=== PATIENT | male | born 1985 | race Caucasian/White ===

== ENCOUNTER 2017-03-24 10:39 | Inpatient (IN) | payer BC ==
[2017-03-24] VITALS (20 sets, daily range): BP systolic 77–156; BP diastolic 25–93
[~2017-03-24] VITALS: Ht 182.9 cm; Wt 72.1 kg
[2017-03-24] MEDS ORDERED: ONDANSETRON HCL/PF 4 MG/2 ML VIAL ONE ×2 (10:46→12:59)
[2017-03-24] MEDS ORDERED: LORAZEPAM INJ 2 MG/ML VIAL ONE (10:46)
[2017-03-24 10:59] LABS: BASOPHILS # (AUTO) 0.1 /CMM (0.0-0.2); BASOPHILS % (AUTO) 0.9 % (0.0-2.0); HEMATOCRIT 39 % (39-51); HEMOGLOBIN 13.1 g/dL (13.5-17.5); LYMPHOCYTES # (AUTO) 0.7 /CMM (0.8-4.8); LYMPHOCYTES % (AUTO) 9.8 % (20.0-44.0); MEAN CORPUSCULAR HEMOGLOBIN 33 PG (26.0-33.0); MEAN CORPUSCULAR HGB CONC 34 g/dl (31.0-36.0); MEAN CORPUSCULAR VOLUME 98 fL (80-96); MONOCYTES # (AUTO) 0.4 /CMM (0.1-1.30); NEUTROPHILS # (AUTO) 6.2 /CMM (1.8-8.9); NEUTROPHILS % (AUTO) 84.3 % (43.0-81.0); PLATELET COUNT (AUTO) 130 /CMM (150-450); RDW COEFFICIENT OF VARIATION 14.1 (11.5-15.0); RED BLOOD CELL COUNT(AUTO) 3.97 MIL/uL (4.5-6.0); WHITE BLOOD COUNT (AUTO) 7.3 K/uL (4.3-11.0)
[2017-03-24] MEDS ORDERED: LORAZEPAM INJ 2 MG/ML VIAL IVP ONE (11:00)
[2017-03-24] MEDS ORDERED: IV NS 0.9% 1,000 ML BAG IV ONE ×2 (11:00→12:30)
[2017-03-24] MEDS ORDERED: ONDANSETRON HCL/PF 4 MG/2 ML VIAL IVP ONE (11:00)
[2017-03-24 11:07] LABS: CALCIUM, SERUM 8.8 mg/dL (8.5-10.1); CARBON DIOXIDE 19 mmol/L (21-32); CHLORIDE 93 mmol/L (98-107); GLUCOSE 143 mg/dL (74-106); POTASSIUM 3.6 mmol/L (3.5-5.1); SODIUM SERUM 133 mmol/L (136-145); UREA NITROGEN, BLOOD 10 mg/dL (7-18)
[2017-03-24 11:13] LABS: ALANINE AMINOTRANSFERASE 105 U/L (12-78); ALCOHOL, BLOOD < 3 mg/dL (0-0); ALKALINE PHOSPHATASE 81 U/L (46-116); ASPARTATE AMINOTRANSFERASE 223 U/L (15-37); BILIRUBIN,DIRECT 0.4 mg/dL (0.0-0.2); BILIRUBIN,TOTAL 1.4 mg/dL (0.2-1.0); TOTAL PROTEIN, SERUM 7.9 g/dL (6.4-8.2)
[2017-03-24 11:23] LABS: INR 0.91 (0.87-1.13); PROTHROMBIN TIME 9.7 SECS (9.5-12.7)
[2017-03-24] MEDS ORDERED: DILTIAZEM HCL 50 MG IV IV ONE (11:30)
[2017-03-24] MEDS ORDERED: DILTIAZEM HCL 25 MG IV ONE (11:30)
[2017-03-24] MEDS ORDERED: DIGOXIN INJ 0.5 MG/2 ML AMPUL ONE (12:21)
[2017-03-24] MEDS ORDERED: DIGOXIN INJ 0.5 MG/2 ML AMPUL IV ONE (12:30)
[2017-03-24] MEDS ORDERED: ONDANSETRON HCL/PF 4 MG/2 ML VIAL IV ONE (13:00)
[2017-03-24] MEDS ORDERED: HYDROCODONE/APAP 5/325MG 1 EACH TABLET PO PRN (15:00)
[2017-03-24] MEDS ORDERED: ONDANSETRON HCL/PF 4 MG/2 ML VIAL IV PRN (15:00)
[2017-03-24] MEDS ORDERED: ACETAMINOPHEN 325 MG TABLET PO PRN (15:00)
[2017-03-24] MEDS ORDERED: PANTOPRAZOLE 40 MG VIAL IV SCH (15:00)
[2017-03-24] MEDS: Folic acid 1 MG in IV D5W 50 ML IV SCH (15:58)
[2017-03-24] MEDS: MVI ADULT IV PRN (15:58)
[2017-03-24] MEDS: [UNRECOGNIZED DRUG - OTHER] IV PRN (15:58)
[2017-03-24] MEDS: POTASSIUM CHLORIDE IV PRN (15:58)
[2017-03-24] MEDS: Thiamine 100 MG in IV D5W 50 ML IV SCH (15:59)
[2017-03-24] MEDS: LORAZEPAM 1 MG TABLET PO PRN ×2 (15:59→23:32)
[2017-03-24] MEDS: PANTOPRAZOLE 40 MG TABLET.DR PO SCH (15:59)
[2017-03-24] MEDS: CHLORDIAZEPOXIDE HCL 25 MG CAPSULE PO SCH (16:49)
[2017-03-25] VITALS (11 sets, daily range): BP systolic 49–170; BP diastolic 31–153
[2017-03-25] MEDS: LORAZEPAM 1 MG TABLET PO PRN ×2 (04:25→08:34)
[2017-03-25 06:44] LABS: BASOPHILS % (AUTO) 0.4 % (0.0-2.0); EOSINOPHILS % (AUTO) 0.5 % (0.0-6.0); HEMATOCRIT 37 % (39-51); HEMOGLOBIN 12.6 g/dL (13.5-17.5); LYMPHOCYTES # (AUTO) 0.6 /CMM (0.8-4.8); LYMPHOCYTES % (AUTO) 12.2 % (20.0-44.0); MEAN CORPUSCULAR HEMOGLOBIN 33 PG (26.0-33.0); MEAN CORPUSCULAR HGB CONC 34 g/dl (31.0-36.0); MEAN CORPUSCULAR VOLUME 97 fL (80-96); MONOCYTES # (AUTO) 0.3 /CMM (0.1-1.30); MONOCYTES % (AUTO) 6.6 % (2.0-12.0); NEUTROPHILS # (AUTO) 3.9 /CMM (1.8-8.9); NEUTROPHILS % (AUTO) 80.3 % (43.0-81.0); PLATELET COUNT (AUTO) 81 /CMM (150-450); RDW COEFFICIENT OF VARIATION 14.1 (11.5-15.0); RED BLOOD CELL COUNT(AUTO) 3.79 MIL/uL (4.5-6.0); WHITE BLOOD COUNT (AUTO) 4.9 K/uL (4.3-11.0)
[2017-03-25 06:57] LABS: CALCIUM, SERUM 8.4 mg/dL (8.5-10.1); CREATININE 0.6 mg/dL (0.6-1.3); POTASSIUM 3.5 mmol/L (3.5-5.1)
[2017-03-25 07:03] LABS: ALBUMIN 3.5 g/dL (3.4-5.0); BILIRUBIN,TOTAL 1.4 mg/dL (0.2-1.0); TOTAL PROTEIN, SERUM 7.2 g/dL (6.4-8.2)
[2017-03-25 07:46] LABS: BAND % (MANUAL) 2 % (0.0-5.0); EOSINOPHILS % (MANUAL) 2 % (0-4); LYMPHOCYTES % (MANUAL) 18 % (16-48); MONOCYTES % (MANUAL) 5 % (0-11.0); NEUTROPHILS % (MANUAL) 73 (42-76)
[2017-03-25] MEDS: [UNRECOGNIZED DRUG - OTHER] IV PRN (08:23)
[2017-03-25] MEDS: POTASSIUM CHLORIDE IV PRN (08:23)
[2017-03-25] MEDS: MVI ADULT IV PRN (08:23)
[2017-03-25] MEDS: CHLORDIAZEPOXIDE HCL 25 MG CAPSULE PO SCH ×3 (08:27→17:00)
[2017-03-25] MEDS: PANTOPRAZOLE 40 MG TABLET.DR PO SCH (08:27)
[2017-03-25] MEDS ORDERED: POTASSIUM CHLORIDE IV PRN (11:30)
[2017-03-25] MEDS ORDERED: Potassium Chloride 20 MEQ in IV D5/ 0.9% NACL 1,000 ML IV PRN (11:30)
[2017-03-25] MEDS ORDERED: MVI ADULT IV PRN (11:30)
[2017-03-25] MEDS ORDERED: [UNRECOGNIZED DRUG - OTHER] IV PRN (11:30)
[2017-03-25] MEDS: LORAZEPAM INJ 2 MG/ML VIAL IV PRN ×2 (13:32→16:04)
[2017-03-25] MEDS: Thiamine 100 MG in IV D5W 50 ML IV SCH (14:50)
[2017-03-25] MEDS: Folic acid 1 MG in IV D5W 50 ML IV SCH (15:30)
== END 2017-03-25 17:45 | disposition short-term general hospital (02) | DRG 897 ==
LOC: ER 10:43 → ICU 13:21 → MED 03-25 03:25 → TELE 03-25 03:31
PROVIDERS: ADMIT Internal Medicine; ATTEND Internal Medicine
DX: F10.239 Alcohol dependence with withdrawal, unspecified (principal); I48.0 Paroxysmal atrial fibrillation; G40.509 Epileptic seizures related to external causes, not intractable, without status epilepticus; F17.210 Nicotine dependence, cigarettes, uncomplicated; F10.229 Alcohol dependence with intoxication, unspecified; F19.21 Other psychoactive substance dependence, in remission; Z95.2 Presence of prosthetic heart valve; Y90.0 Blood alcohol level of less than 20 mg/100 ml
CPT/HCPCS: 36415; 70450-TC; 71010-TC; 80048-TC; 80053-TC; 80076-TC; 85025-TC; 85730-TC; 87081-TC; A4606; G0480; J1160; J2060; J2405; J3411; J3480; J3490; J7030; J7042; J7060; Z7610